=== PATIENT | female | born 1980 | race Caucasian/White ===

== ENCOUNTER 2022-03-14 12:31 | Outpatient (CLI) | payer OTHER | END 2022-03-14 12:32 | disposition home or self-care (01) | LOC: CSHLAB 12:31 | PROVIDERS: ATTEND Internal Medicine Gastroenterology | DX: Z20.822 Contact with and (suspected) exposure to COVID-19 (principal) | CPT/HCPCS: 87811 ==

== ENCOUNTER 2022-03-19 07:35 | Day surgery (SDC) | payer OTHER ==
[2022-03-15 09:36] VITALS: BMI 32.4
[2022-03-19] MEDS ORDERED: Lidocaine 2% MPF 10 ML AMP (For Epidural Use) ONE (07:53)
[2022-03-19] MEDS ORDERED: PROPOFOL 60 ML ONE (07:53)
[2022-03-19] MEDS ORDERED: Lidocaine 1% PF 5 ML VIAL ONE (08:32)
== END 2022-03-19 10:00 | disposition home or self-care (01) ==
LOC: CSHSDC 07:35
PROVIDERS: ATTEND Internal Medicine Gastroenterology
PROC: 0DJD8ZZ Inspection of Lower Intestinal Tract, Via Natural or Artificial Opening Endoscopic (ICD-10-PCS; principal; 2022-03-19)
DX: K59.09 Other constipation (principal); K64.4 Residual hemorrhoidal skin tags; E66.9 Obesity, unspecified; Z68.32 Body mass index [BMI] 32.0-32.9, adult; F17.210 Nicotine dependence, cigarettes, uncomplicated; Z90.710 Acquired absence of both cervix and uterus
CPT/HCPCS: J2704